=== PATIENT | male | born 1950 ===

== ENCOUNTER 2020-01-26 12:36 | Outpatient (REF) | payer MEDICARE, MEDICAID, SELFPAY | END 2020-01-26 12:37 | disposition home or self-care (01) | LOC: HO.HAP 12:36 | PROVIDERS: Visit Provider Pediatrics | DX: H90.3 Sensorineural hearing loss, bilateral (principal) | CPT/HCPCS: V5011; V5160; V5261 ==

== ENCOUNTER 2020-02-17 13:14 | Outpatient (REF) | payer MEDICARE, MEDICAID, SELFPAY | END 2020-02-17 13:15 | disposition home or self-care (01) | LOC: HO.HAP 13:14 | PROVIDERS: PCP Pediatrics; Referring Provider Pediatrics; Visit Provider Pediatrics | DX: Z13.89 Encounter for screening for other disorder (principal) | CPT/HCPCS: 92700 ==